=== PATIENT | female | born 1950 | race Caucasian/White ===

== ENCOUNTER 2018-12-12 08:52 | Outpatient (CLI) | payer BC | END 2018-12-12 08:53 | disposition home or self-care (01) | LOC: BICMAMMO 08:52 | PROVIDERS: ATTEND Obstetrics & Gynecology | DX: Z12.31 Encounter for screening mammogram for malignant neoplasm of breast (principal); Z80.3 Family history of malignant neoplasm of breast | CPT/HCPCS: 77063; 77067 ==

== ENCOUNTER 2019-05-17 10:38 | Emergency (ER) | payer BC | END 2019-05-17 11:28 | disposition home or self-care (01) | LOC: SCSER 10:38 | DX: S40.012A Contusion of left shoulder, initial encounter (principal); S51.802A Unspecified open wound of left forearm, initial encounter; J45.909 Unspecified asthma, uncomplicated; Z79.51 Long term (current) use of inhaled steroids; V18.4XXA Pedal cycle driver injured in noncollision transport accident in traffic accident, initial encounter; Y93.55 Activity, bike riding | CPT/HCPCS: 99283 ==

== ENCOUNTER 2020-07-06 07:45 | Outpatient (CLI) | payer MEDICARE, OTHER ==
--- NOTE | 2020-07-06 11:03 | MRI ---
MRI LEFT ANKLE WITHOUT CONTRAST: HISTORY: Chronic perineal pain. COMPARISON: None. FINDINGS: Ligaments: AITFL AND PITFL are intact. ATFL is intact. CFL is intact. The superficial and deep deltoid ligaments are intact. Spring ligament and tibiospring ligaments are intact. Bones: Stress fracture posterior process of the calcaneus extending along the superior cortex just anterior to the Achilles insertion upon the Achilles insertion upon the footprint perpendicular to the primary compressive trabecula. No displacement. Edema extends throughout the posterior process and body of the calcaneus. The talus is about stress change or stress fracture. The Lisfranc interval is maintained. Lisfranc ligament is intact. Evidence for anterior posterior impingement. Tendons: Perineal tendons are without subluxation. No definite peroneus brevis split bear is appreciated. No retraction of the peroneus longus. Fibroserous screw is intact. The retromalleolar groove is sligh tly flat. No evidence for chronic subluxation. The flexor tendons are intact. Extensor tendons are intact. Muscles: No muscle atrophy. Soft Tissues: Mild edema within the Kager's fat pad. IMPRESSION: 1. Posterior process calcaneal stress fracture perpendicular to the primary compressive trabecula wi thout displacement. Edema throughout the posterior process and body of the calcaneus. No stress anabelle nges of the 2. Intact perineal tendons without subluxation or peroneus brevis split tear. Retromalleolar groove is slightly flat, although the fibro-osseous ridge is intact as well as the perineal retinaculum. 3. Intact Lisfranc interval. POS: AH
== END 2020-07-06 07:46 | disposition home or self-care (01) ==
LOC: SCSMRI 07:45
PROVIDERS: ATTEND Podiatrist
DX: M76.72 Peroneal tendinitis, left leg (principal); M84.372A Stress fracture, left ankle, initial encounter for fracture

== ENCOUNTER 2020-07-12 08:01 | Outpatient (CLI) | payer MEDICARE, OTHER ==
--- NOTE | 2020-07-12 08:33 | BD ---
EXAM: Bone densitometry using DEXA HISTORY: 69 yo female. Screening for postmenopausal osteoporosis FINDINGS: L1--bone mineral density 0.825 g/sq cm; T score -1.5 ; Z score 0.2 L2--bone mineral density 0.839 g/sq cm; T score -1.7 ; Z score 0.2 L3--bone mineral density 0.751 g/sq cm; T score -3.0 ; Z score -1.0 L4--bone mineral density 0.896 g/sq cm; T score -1.5 ; Z score 0.6 Total L1-L4--bone mineral density 0.828 g/sq cm; T score -2.0 ; Z score 0.0 Left femoral neck--bone mineral density0.529; T score -2.9 ; Z score -1.2 Total proximal left femur--bone mineral density 0.688; T score -2.1 ; Z score -0.7 IMPRESSION: Osteoporosis
== END 2020-07-12 08:02 | disposition home or self-care (01) ==
LOC: BICMAMMO 08:01
PROVIDERS: ATTEND Family Medicine
DX: Z13.820 Encounter for screening for osteoporosis (principal); M81.0 Age-related osteoporosis without current pathological fracture
CPT/HCPCS: 77080

== ENCOUNTER 2020-08-25 09:29 | Outpatient (CLI) | payer MEDICARE ==
--- NOTE | 2020-08-25 10:24 | MMO ---
Bilateral MAMMO Bilat Screen [facility]. CLINICAL HISTORY: Patient is 69 years old and is seen for screening. The patient has the following family history of breast cancer: mother, at age 75. The patient has no personal history of cancer. VIEWS: The views performed were: bilateral craniocaudal with tomosynthesis and bilateral mediolateral oblique with tomosynthesis. FILMS COMPARED: The present examination has been compared to prior imaging studies performed at [facility] on 04/16/2013, 12/31/2014, 11/07/2016 and 12/12/2018. This study has been interpreted with the assistance of computer-aided detection. MAMMOGRAM FINDINGS: There are scattered fibroglandular densities. There are no suspicious masses, suspicious calcifications, or new areas of architectural distortion. IMPRESSION: THERE IS NO MAMMOGRAPHIC EVIDENCE OF MALIGNANCY. A ROUTINE FOLLOW-UP MAMMOGRAM IN 1 YEAR IS RECOMMENDED. THE RESULTS OF THIS EXAM WERE SENT TO THE PATIENT. ACR BI-RADS Category 1 - Negative MAMMOGRAPHY NOTE: 1. A negative mammogram report should not delay a biopsy if a dominant of clinically suspicious mass is present. 2. Approximately 10% to 15% of breast cancers are not detected by mammography. 3. Adenosis and dense breasts may obscure an underlying neoplasm. Reported by: SIMIN BELL MD Electonically Signed: [id number]
== END 2020-08-25 09:30 | disposition home or self-care (01) ==
LOC: BICMAMMO 09:29
PROVIDERS: ATTEND Family Medicine
DX: Z12.31 Encounter for screening mammogram for malignant neoplasm of breast (principal); Z80.3 Family history of malignant neoplasm of breast
CPT/HCPCS: 77063; 77067

== ENCOUNTER 2021-07-14 07:53 | Outpatient (CLI) | payer MEDICARE | END 2021-07-14 07:54 | disposition home or self-care (01) | LOC: BICMAMMO 07:53 | PROVIDERS: ATTEND Family Medicine | DX: Z12.31 Encounter for screening mammogram for malignant neoplasm of breast (principal); M81.0 Age-related osteoporosis without current pathological fracture; M85.89 Other specified disorders of bone density and structure, multiple sites | CPT/HCPCS: 77080 ==

== ENCOUNTER 2021-08-08 12:34 | Outpatient (CLI) | payer MEDICARE | END 2021-08-08 12:35 | disposition home or self-care (01) | LOC: BICRAD 12:34 | PROVIDERS: ATTEND Family Medicine | DX: R07.81 Pleurodynia (principal) ==

== ENCOUNTER 2021-11-16 13:30 | Outpatient (CLI) | payer MEDICARE | END 2021-11-16 13:31 | disposition home or self-care (01) | LOC: BICMAMMO 13:30 | PROVIDERS: ATTEND Family Medicine | DX: Z12.31 Encounter for screening mammogram for malignant neoplasm of breast (principal); Z80.3 Family history of malignant neoplasm of breast | CPT/HCPCS: 77063; 77067 ==

== ENCOUNTER 2022-08-31 09:35 | Outpatient (CLI) | payer MEDICARE, OTHER | END 2022-08-31 09:36 | disposition home or self-care (01) | LOC: BICMAMMO 09:35 | PROVIDERS: ATTEND Internal Medicine | DX: M81.0 Age-related osteoporosis without current pathological fracture (principal); M85.851 Other specified disorders of bone density and structure, right thigh | CPT/HCPCS: 77080 ==

== ENCOUNTER 2023-09-05 08:52 | Outpatient (CLI) | payer MEDICARE, OTHER | END 2023-09-05 08:53 | disposition home or self-care (01) | LOC: BICMAMMO 08:52 | PROVIDERS: ATTEND Internal Medicine | DX: M81.0 Age-related osteoporosis without current pathological fracture (principal); M85.851 Other specified disorders of bone density and structure, right thigh | CPT/HCPCS: 77080 ==

== ENCOUNTER 2024-09-09 09:37 | Outpatient (CLI) | payer MEDICARE, OTHER | END 2024-09-09 09:38 | disposition home or self-care (01) | LOC: BICMAMMO 09:37 | PROVIDERS: ATTEND Internal Medicine Endocrinology, Diabetes & Metabolism | DX: M81.8 Other osteoporosis without current pathological fracture (principal); M85.851 Other specified disorders of bone density and structure, right thigh | CPT/HCPCS: 77080 ==

== ENCOUNTER 2025-07-16 13:47 | Outpatient (CLI) | payer MEDICARE, OTHER | END 2025-07-16 13:48 | disposition home or self-care (01) | LOC: BICMAMMO 13:47 | PROVIDERS: ATTEND Internal Medicine | DX: Z12.31 Encounter for screening mammogram for malignant neoplasm of breast (principal); Z80.3 Family history of malignant neoplasm of breast | CPT/HCPCS: 77063; 77067 ==